=== PATIENT | male | born 1970 | race African-American/Black ===

== ENCOUNTER 2019-05-26 02:43 | Inpatient (IN) | payer MEDICAID, MEDICARE ==
[~2019-05-26] VITALS: Ht 175.3 cm; Wt 70.3 kg
[2019-05-26] MEDS ORDERED: METHYLPREDNISOLONE SOD SUCC 125 MG/2 ML VIAL IV STA (04:11)
[2019-05-26] MEDS ORDERED: MAGNESIUM 2 G PREMIX 50 ML IV STA (04:11)
[2019-05-26] MEDS ORDERED: IPRATROPIUM BROMIDE (0.02%) 0.5MG/2.5ML NEB HHN STA (04:11)
[2019-05-26] MEDS ORDERED: ALBUTEROL (0.083%) 2.5MG/3ML NEB HHN STA (04:11)
[2019-05-26 04:27] LABS: BASOPHILS % 0.7 % (0.0-2.0); EOSINOPHILS % 13.3 % (0.0-5.0); HEMOGLOBIN. 15.3 g/dL (14.0-18.0); LYMPHOCYTES % 49.7 % (20.0-50.0); MEAN CORPUSCULAR HEMOGLOBIN 25.6 pg (28.0-32.0); MEAN CORPUSCULAR VOLUME 78.5 fL (80.0-94.0); MEAN PLATELET VOLUME 8.4 fl (7.4-10.4); MONOCYTES % 7.1 % (2.0-8.0); NEUTROPHILS % 29.2 % (40.0-76.0); PLATELET 333 x1000/uL (130-400); RED BLOOD CELL COUNT 5.99 mill/uL (4.7-6.1); RED CELL DISTRIBUTION WIDTH 14.9 % (11.6-14.6)
[2019-05-26 04:28] LABS: CHLORIDE 106 mEq/L (98-107)
[2019-05-26] MEDS ORDERED: CEFTRIAXONE 1 G PREMIX 50 ML IV ONE (05:30)
[2019-05-26] MEDS ORDERED: AZITHROMYCIN 500 MG in DEXT 5% WATER 250 ML IV ONE (05:30)
[2019-05-26 08:00] VITALS: BP 118/72
[2019-05-26] MEDS ORDERED: ONDANSETRON HCL 4MG/2ML INJ IV PRN (09:00)
[2019-05-26] MEDS ORDERED: ZINC SULFATE 220 MG ( 50 ) CAPSULE PO SCH (09:00)
[2019-05-26] MEDS ORDERED: DOCUSATE SODIUM 100MG CAPSULE PO PRN (09:00)
[2019-05-26] MEDS ORDERED: ACETAMINOPHEN 325MG TABLET PO PRN (09:00)
[2019-05-26] MEDS ORDERED: IPRATROPIUM/ALBUTEROL 0.5-3(2.5)MG/3ML NEB NEB PRN (09:00)
[2019-05-26] MEDS ORDERED: CLONIDINE 0.1MG TABLET PO PRN (09:00)
[2019-05-26] MEDS ORDERED: LORAZEPAM 0.5MG TABLET PO PRN (09:00)
[2019-05-26] MEDS ORDERED: SODIUM CHLORIDE 0.9% 1000ML BAG (SEPSIS BOLUS) IV ONE (09:00)
[2019-05-26] MEDS ORDERED: DIPHENHYDRAMINE 50MG/ML VIAL IV PRN (09:00)
[2019-05-26] MEDS ORDERED: MAGNESIUM/ALUMINUM HYDROXIDE/SIMETHICONE 30ML UDC PO PRN (09:00)
[2019-05-26] MEDS ORDERED: GUAIFENESIN 200MG/10ML SUGAR FREE UDC PO PRN (09:00)
[2019-05-26] MEDS ORDERED: TRAMADOL 50MG TABLET PO PRN (09:00)
[2019-05-26] MEDS ORDERED: POTASSIUM CHLORIDE 20MEQ/PACKET PO SCH (09:00)
[2019-05-26] MEDS ORDERED: NITROGLYCERIN 0.4MG TABLET SL SL PRN (09:00)
[2019-05-26] MEDS ORDERED: ENOXAPARIN 40MG/0.4ML SYR SUBCUT SCH (09:00)
[2019-05-26] MEDS ORDERED: KETOROLAC 15MG/ML VIAL IV PRN (09:15)
[2019-05-26] MEDS: FAMOTIDINE 20MG TABLET PO SCH ×2 (09:27→21:47)
[2019-05-26] MEDS: ASCORBIC ACID 500 MG TABLET PO SCH ×2 (09:28→21:48)
[2019-05-26] MEDS: GUAIFENESIN 600MG ER TABLET PO SCH ×2 (09:29→21:47)
[2019-05-26] MEDS ORDERED: IOHEXOL-300 100 ML BOTTLE ONE (11:44)
[2019-05-26 12:00] VITALS: BP 120/80
[2019-05-26 13:28] VITALS: BP 120/73
[2019-05-26] MEDS ORDERED: LEVOFLOXACIN 750MG PREMIX 150 ML IV SCH (14:00)
[2019-05-26] MEDS: METHYLPREDNISOLONE SOD SUCC 125 MG/2 ML VIAL IV SCH ×2 (14:21→21:48)
[2019-05-26 14:36] LABS: *BENZODIAZEPINES SCREEN URINE NEGATIVE (NEGATIVE); *COCAINE SCREEN URINE NEGATIVE (NEGATIVE); METHADONE URINE SCREEN NEGATIVE (NEGATIVE); OPIATES URINE SCREEN NEGATIVE (NEGATIVE)
[2019-05-26 14:37] LABS: CANNABINOID URINE SCREEN NEGATIVE (NEGATIVE); PHENCYCLIDINE URINE SCREEN NEGATIVE (NEGATIVE)
[2019-05-26 14:39] LABS: *AMPHETAMINES SCREEN URINE NEGATIVE (NEGATIVE); *BARBITURATES SCREEN URINE NEGATIVE (NEGATIVE)
[2019-05-26] MEDS ORDERED: ALBU18HF2 IH (15:31)
[2019-05-26] MEDS ORDERED: AMLO10TA4 PO (15:31)
[2019-05-26 16:08] VITALS: BP 132/72
[2019-05-26 17:14] LABS: CREATINE KINASE 78 IU/L (39-308)
[2019-05-26 17:15] LABS: CREATINE KINASE MB FRACTION 1.4 ng/mL (0.5-3.6)
[2019-05-26 20:00] VITALS: BP 140/100
[2019-05-26] MEDS ORDERED: ZOLPIDEM TARTRATE 5MG TABLET PO PRN (21:00)
[2019-05-26] MEDS: IPRATROPIUM/ALBUTEROL 0.5-3(2.5)MG/3ML NEB HHN SCH (23:18)
[2019-05-26 23:47] VITALS: BP 149/113
[2019-05-27 04:31] VITALS: BP 131/93
[2019-05-27] MEDS: IPRATROPIUM/ALBUTEROL 0.5-3(2.5)MG/3ML NEB HHN SCH (05:24)
[2019-05-27] MEDS: METHYLPREDNISOLONE SOD SUCC 125 MG/2 ML VIAL IV SCH (06:29)
== END 2019-05-27 07:35 | disposition left against medical advice (07) | DRG 871 ==
LOC: ER 02:43 → 7WST 05:28 → ENRESERV 07:19
PROVIDERS: ADMIT Internal Medicine; ATTEND Internal Medicine
DX: A41.9 Sepsis, unspecified organism (principal); J18.9 Pneumonia, unspecified organism; J44.0 Chronic obstructive pulmonary disease with (acute) lower respiratory infection; J44.1 Chronic obstructive pulmonary disease with (acute) exacerbation; E87.6 Hypokalemia; F17.200 Nicotine dependence, unspecified, uncomplicated; Z79.899 Other long term (current) drug therapy
CPT/HCPCS: 36415; 71045; 71260; 80048; 80061; 80305; 82550; 82553; 83036; 83605; 83880; 84484; 93306; 93970; 94640; 94644; 96365; 96367; 96375; 99291; J0456; J0696; J1650; J1956; J2930; J3475; J7040; J7060; J7611; Q9967

== ENCOUNTER 2024-11-14 22:52 | Emergency (ER) | payer MEDICARE ==
[~2024-11-14] VITALS: Ht 177.8 cm; Wt 100.0 kg
[~2024-11-14 22:52] MED LIST: ALBU18HF2 IH; AMLO-905 PO
[2024-11-14] MEDS: IPRATROPIUM BROMIDE (0.02%) 0.5MG/2.5ML NEB HHN STA (23:31)
[2024-11-14] MEDS: ALBUTEROL (0.083%) 2.5MG/3ML NEB HHN STA (23:31)
[2024-11-14 23:48] LABS: DIFFERENTIAL COMMENT 0; EOSINOPHILS % 7.2 % (0.0-5.0); HEMATOCRIT. 43.9 % (42.0-52.0); HEMOGLOBIN. 14.4 g/dL (14.0-18.0); LYMPHOCYTES % 43.4 % (20.0-50.0); MEAN CORPUSCULAR HEMOGLOBIN 25.8 pg (28.0-32.0); MEAN CORPUSCULAR HGB CONC 32.9 g/dL (31.0-37.0); MEAN CORPUSCULAR VOLUME 78.4 fL (80.0-94.0); MEAN PLATELET VOLUME 8.1 fl (7.4-10.4); MONOCYTES % 10.9 % (2.0-8.0); NEUTROPHILS % 37.5 % (40.0-76.0); PLATELET 320 x1000/uL (130-400); RED CELL DISTRIBUTION WIDTH 14.4 % (11.6-14.6); WHITE BLOOD COUNT 4.9 x1000/uL (4.5-11.0)
[2024-11-14 23:53] LABS: CHLORIDE 106 mEq/L (98-107); POTASSIUM 3.5 mEq/L (3.5-5.1); SODIUM 143 mEq/L (136-145)
[2024-11-14 23:54] LABS: CALCIUM 9.4 mg/dL (8.7-10.4); CARBON DIOXIDE 32 mEq/L (21-32)
[2024-11-14 23:58] LABS: CREATININE 1.2 mg/dL (0.6-1.3)
[2024-11-14 23:59] LABS: GLUCOSE 121 mg/dL (70-105); UREA NITROGEN BLOOD 12 mg/dL (9-23)
[2024-11-15] LABS: TROPONIN I HIGH SENSITIVITY 7 ng/L (3.0-53)
[2024-11-15] MEDS: METHYLPREDNISOLONE SOD SUCC 125MG/2ML (ACT-O-VIAL) IV STA (01:11)
[2024-11-15] MEDS: MAGNESIUM 2 G PREMIX 50 ML IV ONE (01:11)
[2024-11-15 01:47] VITALS: PULSE 74; RESP 22; O2SAT 97
[2024-11-15] MEDS ORDERED: P50 MT (02:07)
[2024-11-15] MEDS ORDERED: ALBU18HF2 IH (02:07)
[2024-11-15 04:05] VITALS: BP 148/104; PULSE 85; RESP 20; TEMP 36.7; O2SAT 97
== END 2024-11-15 04:24 | disposition home or self-care (01) ==
LOC: ER 22:52
DX: J45.901 Unspecified asthma with (acute) exacerbation (principal); I10 Essential (primary) hypertension; F12.90 Cannabis use, unspecified, uncomplicated; Z79.899 Other long term (current) drug therapy
CPT/HCPCS: 99285; 80048; 83735; 85025; 84484; 36415; 93005; 96365; 96375; 94640; J2919; J3475; 94760